=== PATIENT | male | born 2000 | race Caucasian/White ===

== ENCOUNTER 2023-02-06 21:27 | Emergency (ER) | payer SELFPAY ==
[2023-02-06 21:30] VITALS: BP 130/67; PULSE 92; RESP 18; TEMP 36.5; O2SAT 99
--- NOTE | 2023-02-06 21:36 | ECG_ITS ---
Measurements Intervals [place] Rate: 87 P: 50 MT: 152 QRS: 49 QRSD: 98 T: 30 QT: 345 QTc: 415 Interpretive Statements SINUS RHYTHM EARLY PRECORDIAL R/S TRANSITION BASELINE WANDER- V4-V6 BORDERLINE ECG NO PREVIOUS ECG AVAILABLE FOR COMPARISON Electronically Signed On 02-07-2023 7:27:19 CDT by Tyree Casas D.O.
--- NOTE | 2023-02-06 21:55 | ED.GENADULT ---
HPI - General Adult General Chief complaint: Unspecified Stated complaint: work note Time Seen by Provider: 02/06/23 21:36 History of Present Illness HPI narrative: Patient had not eaten dinner and skips breakfast, he also had not really been drinking water, and he was operating a work left when he felt lightheaded and tunnel vision as if he was going to pass out, he pulled over, drink all bottled water, felt much better, and told his management who told him to go to the hospital to be cleared to come back to work. He went home, has something to eat and drink, is now feeling much better, does not have any symptoms currently. Never had any chest pain or difficulty breathing. No medical issues. Related Data Allergies Allergy/AdvReac Type Severity Reaction Status Date / Time No Known Allergies Allergy Verified 02/06/23 21:49 Review of Systems Review of Systems: CONST: No fever. HEENT: No sore throat C/V: No chest pain RESP: No cough GI: No nausea or vomiting : No dysuria. M/S: No joint pain. SKIN: No rash. NEURO: Lightheadedness now resolved PSYCH: [No depression] [facility] Past Medical History Medical History (Updated 02/06/23 @ 21:59 by Malka Quinones MD) No significant active problems Exam Narrative: EXAMINATION OF ORGAN SYSTEMS/BODY AREAS: Constitutional: Vital signs per nursing GENERAL:[No acute distress, non-toxic appearing.] HEAD: Normal with no signs of head trauma. EYES: EOMI, conjunctiva normal ENT: Hearing grossly intact LUNGS: Nonlabored breathing. HEART: [Regular rate and rhythm] ABD: No distention EXT: Normal range of motion SKIN: [No rashes or lesions.] NEURO: [Alert and oriented x 3. No gross focal sensory or strength deficits.] Ambulating with normal gait PSYCH: Normal affect Course Vital Signs Vital signs: Vital Signs Temperature 97.7 F 02/06/23 21:30 Pulse Rate 92 02/06/23 21:30 Respiratory Rate 18 02/06/23 21:30 Blood Pressure 130/67 02/06/23 21:30 Pulse Oximetry 99 02/06/23 21:30 Oxygen Delivery Room Air 02/06/23 21:30 Temperature 97.7 F 02/06/23 21:30 Pulse Rate 92 02/06/23 21:30 Respiratory Rate 18 02/06/23 21:30 Blood Pressure 130/67 02/06/23 21:30 Pulse Oximetry 99 02/06/23 21:30 Oxygen Delivery Room Air 02/06/23 21:30 Medical Decision Making MDM Narrative Medical decision making narrative: 22-year-old male who is here for work note to go back to work after he had some lightheadedness at work after forgetting to eat and drink. He is asymptomatic at this time. I suspect likely presyncope from dehydration/not eating, blood sugar checked here is normal, low concern for any cardiac normality without any family history or personal history, and he did have prodrome, I will obtain an EKG here. EKG - 12-Lead: Performed at 2142. Interpreted by me. [Sinus rhythm]. Rate 87. [Normal] axis. AL-interval 152. QRS duration 98. QTc 389. [No ST segment elevation or depression]. [T-wave normal]. Impression: No EKG evidence of acute ischemia or dysrhythmia. Patient is well-appearing and would like to go home with a work note to go back to work, this is provided, he is given return precautions and follow-up instructions. Vital Signs Vital Signs: Vital Signs Temperature 97.7 F 02/06/23 21:30 Pulse Rate 92 02/06/23 21:30 Respiratory Rate 18 02/06/23 21:30 Blood Pressure 130/67 02/06/23 21:30 Pulse Oximetry 99 02/06/23 21:30 Oxygen Delivery Room Air 02/06/23 21:30 Temperature 97.7 F 02/06/23 21:30 Pulse Rate 92 02/06/23 21:30 Respiratory Rate 18 02/06/23 21:30 Blood Pressure 130/67 02/06/23 21:30 Pulse Oximetry 99 02/06/23 21:30 Oxygen Delivery Room Air 02/06/23 21:30 Discharge Plan Discharge Clinical Impression: Pre-syncope, Acute dehydration Patient Disposition: Home, Self-Care Condition: Stable Instructions: Antibiotic Form, Lightheadedness (ED) Additional Instr
[2023-02-06 21:56] LABS: Glucose Point of Care 91 mg/dl (65-105)
== END 2023-02-06 22:12 | disposition home or self-care (01) ==
LOC: ANHED 21:59
PROVIDERS: Emergency Provider Emergency Medicine
DX: R55 Syncope and collapse (principal); E86.0 Dehydration
CPT/HCPCS: 82948; 93005; 99283